=== PATIENT | male | born 1945 | race Caucasian/White ===

== ENCOUNTER 2021-09-15 08:26 | Observation (INO) | payer OTHER ==
[~2021-09-15] VITALS: Ht 175.3 cm; Wt 127.0 kg
[2021-09-15 09:00] LABS: BASOPHILS ABSOLUTE AUTO 0.03 K/mm3 (0.00-0.23); BASOPHILS PERCENT AUTO 0 % (0-2); EOSINOPHILS ABSOLUTE AUTO 0.09 K/mm3 (0.00-0.68); EOSINOPHILS PERCENT AUTO 1 % (0-6); Hematocrit 44.7 % (37.0-53.0); Hemoglobin 14.8 g/dL (13.5-17.5); IMMATURE GRAN ABSOLUTE AUTO 0.02 K/mm3 (0.00-0.10); IMMATURE GRAN PERCENT AUTO 0 % (0-1); LYMPHOCYTES ABSOLUTE AUTO 1.45 K/mm3 (0.84-5.20); LYMPHOCYTES PERCENT AUTO 20 % (21-46); MONOCYTES ABSOLUTE AUTO 0.76 K/mm3 (0.16-1.47); MONOCYTES PERCENT AUTO 11 % (4-13); Mean Corpuscular HGB 29.7 pg (26.0-34.0); Mean Corpuscular HGB Conc 33.1 g/dL (31.5-36.5); Mean Corpuscular Volume 90 fL (80-100); Mean Platelet Volume 9.7 fL (9.1-12.4); NEUTROPHILS ABSOLUTE AUTO 4.75 K/mm3 (1.96-9.15); NEUTROPHILS PERCENT AUTO 67 % (41-73); Platelet Count 147 K/mm3 (150-400); RDW Coefficient Variation 15.2 % (11.7-14.2); RDW Standard Deviation 50.4 fL (35.1-46.3); Red Blood Cell Count 4.98 M/mm3 (4.30-5.90)
[2021-09-15 09:21] LABS: Albumin, Blood 3.9 g/dL (3.4-5.0); Albumin/Globulin Ratio 1.1 (0.8-1.8); Bilirubin, Total 0.3 mg/dL (0.1-1.0); Bun/Creatinine Ratio 18.1 (12.0-20.0); Calcium, Blood 8.6 mg/dL (8.5-10.1); Creatinine, Blood 1.66 mg/dL (0.60-1.20); Globulin, Blood 3.5 g/dL (2.2-4.0); Potassium, Blood 3.4 mmol/L (3.5-5.5); Total Protein, Blood 7.4 g/dL (6.4-8.2)
[2021-09-15 09:37] LABS: Influenza A, PCR NEGATIVE (NEGATIVE); Influenza B, PCR NEGATIVE (NEGATIVE); Resp Syncytial Virus, PCR NEGATIVE (NEGATIVE)
[2021-09-15 09:42] LABS: SARS-Cov-2 (COVID-19) PCR, MMC POSITIVE (NEGATIVE)
[2021-09-15] MEDS ORDERED: TAMS.4ER PO (09:59)
[2021-09-15] MEDS ORDERED: Prinivil10 MG PO (09:59)
[2021-09-15] MEDS ORDERED: ATOR10 PO (09:59)
[2021-09-15] MEDS ORDERED: METF500 PO (10:00)
[2021-09-15] MEDS ORDERED: FINA5 PO (10:00)
[2021-09-15] MEDS ORDERED: ALBU90OI INH (10:05)
[2021-09-15] MEDS ORDERED: Aspir 8181 MG PO (10:06)
[2021-09-15] MEDS ORDERED: JARDIANCE25 MG PO (10:06)
[2021-09-15] MEDS ORDERED: WEGOVY1 MG/0.5 M (10:07)
[2021-09-15] MEDS ORDERED: HUMULIN R500 UNIT/1 SC (10:09)
[2021-09-15] MEDS ORDERED: Isosorbide Mono30 MG PO (10:10)
[2021-09-15] MEDS ORDERED: FURO40 PO (10:10)
[2021-09-15] MEDS ORDERED: HUMULIN R U SC (18:21)
--- NOTE | 2021-09-15 18:25 | NUR ---
ER ADMIT Arrived to unit at 1415, patient stand pivot from gurney to bed, very SOB with activity. Saturations stable on RA, afebrile, BP soft. Normal saline infusing via left AC. Patient is alert & oriented, but hard of hearing, communicates with white board, at bedside to help with patients care. Patient is prescribed insulin that is not on hand at hospital, asked if she could bring home insulin. She said her patient did not want her leave his side, stated "its okay if he misses his does, he has gone without before". Reported this to MD. Lungs diminished, fine crackles at bases, congested cough, nonproductive. COVID Enhanced droplet precautions in place.
--- NOTE | 2021-09-16 04:53 | NUR ---
PT VERY MES[place]ANDE HOWEVER PT AT BEDSIDE ASSISTING WITH COMMUNICATION. PT LACTIC ACID 3.5 FROM 3.3. PER [facility] NO NEED FOR ADDITIONAL LACTIC ACID DRAW IF BP NORMAL. PT BLOOD GLUCOSE AT HS 120 ALL INSULIN NOT GIVEN PER CLINICAL JUDGEMENT AND PER REPORT THAT SHE WOULD NOT GIVEN ANY IF THIS WAS THE BG AT HOME. PT ON HOME CPAP WITH TWO EPISODES OF OXYGEN DROPING TO 81 WHILE ON CPAP. PT OXYGEN WOULD SLOWLY RETURN TO LOW 90S. RT CALLED FOR ASSISTANCE IN APPLYING OXYGEN HOWEVER PT HOME CPAP IS NOT ADAPTED TO SUPPORT OXYGEN. ADDITIONALLY PER RT AT THIS TIME THERE ARE NO AVAILABLE HOSPTIAL CPAPS AT THIS TIME. INSTRUCTED TO WAKE PT UP WHENEVER OXYGEN DROPED <88 WHILE AWAKE PT SATS ARE MID 90S. PT REPORTED THAT IN THE PAST PT NEEDED OXYGEN HOWEVER IT D/C AND WILL LOOK INTO HAVING OXYGEN ADDED AGAIN. PT ALSO WITH PRODUCTIVE COUGH PER . SPUTUM SAMPLE ORDERED AND AWATING COLLECTION.
[2021-09-16 06:36] LABS: Albumin, Blood 3.3 g/dL (3.4-5.0); Albumin/Globulin Ratio 1.1 (0.8-1.8); Bilirubin, Total 0.5 mg/dL (0.1-1.0); Bun/Creatinine Ratio 21.8 (12.0-20.0); Calcium, Blood 7.7 mg/dL (8.5-10.1); Creatinine, Blood 0.96 mg/dL (0.60-1.20); Potassium, Blood 3.3 mmol/L (3.5-5.5); Total Protein, Blood 6.3 g/dL (6.4-8.2)
--- NOTE | 2021-09-16 11:02 | NUR ---
AMA NOTE PT AxOx4. PT INSISTING TO LEAVE AMA WITH THIS AM. DR NOTIFIED AND WENT TO ROOM TO DISCUSS CARE PLAN AND CONCERNS. PT AND RECOMMENDED TO STAY INPATIENT FOR IV ANTIBIOTICS AND MONITORING. PT AND NOTIFIED OF RISKS OF LEAVING AMA WITHOUT TREATMENT, INCLUDING WORSENING INFECTION AND . PT AND VERBALIZE UNDERSTANDING OF RISKS. AMA FORM SIGNED BY PATIENT. PT LEFT WITH AT APPROXIMATELY 1045.
== END 2021-09-16 10:49 | disposition left against medical advice (07) ==
LOC: ER 08:26 → MEDS 08:27
PROVIDERS: Emergency Medicine; Student in an Organized Health Care Education/Training Program; ADMIT Internal Medicine
DX: U07.1 COVID-19 (principal); I95.9 Hypotension, unspecified; N17.9 Acute kidney failure, unspecified; R78.81 Bacteremia; E87.2 Acidosis; E87.6 Hypokalemia; Z53.29 Procedure and treatment not carried out because of patient's decision for other reasons; E11.9 Type 2 diabetes mellitus without complications; I10 Essential (primary) hypertension; J44.9 Chronic obstructive pulmonary disease, unspecified; G47.33 Obstructive sleep apnea (adult) (pediatric); Z87.891 Personal history of nicotine dependence; Z79.82 Long term (current) use of aspirin; Z79.4 Long term (current) use of insulin; Z79.899 Other long term (current) drug therapy
CPT/HCPCS: 0241U; 36415; 71045; 80053; 82947; 83605; 84484; 85025; 87040; 93005; 93010; 94640; 94660; 94664; 94760; 94762; 96361; 96372; 96374; 99285-25; A9270; C9113; G0378; J1650; J1815; J7030; M0222